=== PATIENT | female | born 1980 | race Caucasian/White ===

== ENCOUNTER 2019-01-22 10:07 | Emergency (ER) | payer BC ==
[2019-01-22 11:40] VITALS: BP 136/94
--- NOTE | 2019-01-22 12:22 | UC ---
Hand/Wrist HPI - History Of Current Complaint Chief Complaint: UCUpperExtremity Stated Complaint: FINGER INJURY Time Seen by Provider: 01/22/19 11:53 Hx Obtained From: Patient Hx Last Menstrual Period: one week ago ?: No Onset/Duration: Sudden Onset, Lasting Days - 5 Severity Initially: Moderate Severity Currently: Moderate Pain Intensity: 4 Pain Scale Used: 0-10 Numeric Character Of Pain: Sharp, Aching Aggravating Factor(s): Movement, Lifting Alleviating Factor(s): Rest, Ice Associated Signs And Symptoms: Positive: Swelling, Bruising, Numbness/Tingling - Allergies/Home Medications Allergies/Adverse Reactions: Allergies Allergy/AdvReac Type Severity Reaction Status Date / Time No Known Allergies Allergy Verified 01/22/19 11:40 Home Medications: Home Medications NK [No Home Medications Reported] 01/22/19 [History Confirmed 01/22/19] PMH/Surg Hx/FS Hx/Imm Hx Previously Healthy: Yes - Surgical History Surgical History: None - Family History Known Family History: Positive: Non-Contributory Negative: Hypertension - Social History Occupation: Employed Full-time Alcohol Use: Occasionally Substance Use Type: None Smoking Status (MU): Never Smoked Tobacco Review of Systems All Other Systems Reviewed And Are Negative: Yes Constitutional: Positive: Negative Skin: Positive: Bruising, Other - swelling Motor: Positive: Negative Musculoskeletal: Positive: Arthralgia, Decreased ROM, Edema, Myalgia Is Patient Immunocompromised?: No Physical Exam Triage Information Reviewed: Yes Appearance: Well-Appearing, No Pain Distress, Well-Nourished Vital Signs: Initial Vital Signs Temp 99.1 F 01/22/19 11:37 Pulse 78 01/22/19 11:37 Resp 18 01/22/19 11:37 BP 136/94 01/22/19 11:37 Pulse Ox 100 01/22/19 11:37 Vital Signs Reviewed: Yes Eyes: Positive: Conjunctiva Clear ENT: Positive: Hearing grossly normal Musculoskeletal: Positive: Strength Intact, ROM Intact, Edema @ - distal thumb R , Other: - full flex/ extension of thumb against resistence, + TTP over dital phal, DIP, non proximal. no scaphoid tenderness. rad/ ulnar pulses 2+. full wrist PROM without pain Neurological: Positive: Alert, Other: - SITLT at distal thumb, R Psychological: Positive: Normal Response To Family Skin: Positive: Other - mild ecchymosis. no open wounds, sores. + moderate edema Hand/Wrist Course/Dx - Course Course Of Treatment: Fracture of tuft of thumb- - Motrin/ tylenol as needed for pain - Splint for next 2-3 weeks - Follow up with orthopedics within 7-10 days for repeat evaluation - Elevate, ice when possible - REturn with increased swelling, pain, decreased range of motion, sensation - Differential Dx/Diagnosis Differential Diagnosis/HQI/PQRI: Cellulitis, Fracture, Tendonitis Provider Diagnosis: Closed fracture of tuft of distal phalanx of thumb Discharge ED - Sign-Out/Discharge Documenting (check all that apply): Patient Departure All imaging exams completed and their final reports reviewed: Yes - Discharge Plan Condition: Good Disposition: HOME Patient Education Materials: Finger Fracture (ED) Referrals: Hazel Marie MD [Primary Care Provider] - Additional Instructions: Fracture of tuft of thumb- - Motrin/ tylenol as needed for pain - Splint for next 2-3 weeks - Follow up with orthopedics within 7-10 days for repeat evaluation - Elevate, ice when possible - REturn with increased swelling, pain, decreased range of motion, sensation - Billing Disposition and Condition Condition: GOOD Disposition: Home
== END 2019-01-22 12:30 | disposition home or self-care (01) ==
LOC: UCEAST 10:07
DX: S62.521A Displaced fracture of distal phalanx of right thumb, initial encounter for closed fracture (principal); X58.XXXA Exposure to other specified factors, initial encounter; Y92.9 Unspecified place or not applicable
CPT/HCPCS: 99211; G0463